=== PATIENT | female | born 1985 | race African-American/Black ===

== ENCOUNTER 2019-08-18 06:31 | Emergency (ER) | payer SELFPAY ==
[~2019-08-18] VITALS: Ht 165.1 cm; Wt 107.0 kg
[2019-08-18 06:44] VITALS: BP 132/85
[2019-08-18 12:25] LABS: BASOPHILS % 0.4 % (0.0-2.0); EOSINOPHILS % 0.1 % (0.0-5.0); HEMATOCRIT. 35.4 % (36.0-48.0); HEMOGLOBIN. 11.4 g/dL (12.0-16.0); LYMPHOCYTES % 9.9 % (20.0-50.0); MEAN CORPUSCULAR HEMOGLOBIN 24.3 pg (28.0-32.0); MEAN CORPUSCULAR VOLUME 75.2 fL (81.0-99.0); MEAN PLATELET VOLUME 9.2 fl (7.4-10.4); NEUTROPHILS % 85.6 % (40.0-76.0); PLATELET 325 x1000/uL (130-400); RED BLOOD CELL COUNT 4.71 mill/uL (4.2-5.4)
[2019-08-18 12:29] LABS: CHLORIDE 106 mEq/L (98-107)
[2019-08-18 12:36] LABS: HCG SCREEN NEGATIVE
== END 2019-08-18 13:47 | disposition home or self-care (01) ==
LOC: ER 06:31
DX: R07.89 Other chest pain (principal); D50.9 Iron deficiency anemia, unspecified; R11.10 Vomiting, unspecified
CPT/HCPCS: 36415; 71045; 80053; 84484; 84703; 85025; 93005; 99285